=== PATIENT | male | born 1995 | race Caucasian/White ===

== ENCOUNTER 2018-06-06 20:03 | Emergency (ER) | payer OTHER ==
[~2018-06-06] VITALS: Ht 188 cm; Wt 76.2 kg
[2018-06-06 20:05] VITALS: BP_SYST 160
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
--- NOTE | 2018-06-06 20:38 | NUR ---
Patient to ER bed 07 for evaluation. Side rails up.
--- NOTE | 2018-06-06 20:41 | NUR ---
ER Dr. Fisher at bedside examining patient.
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
--- NOTE | 2018-06-06 21:00 | NUR ---
Pt taken to radiology via gurney in stable condition
[2018-06-06] MEDS ORDERED: BACITRACIN 1 GM OINT TP ONE (22:15)
--- NOTE | 2018-06-06 22:32 | NUR ---
Patient given written and verbal discharge instructions and verbalizes understanding. ER MD Fisher discussed with patient the results and treatment provided. Patient in stable condition. ID arm band removed. IV catheter removed intact and dressing applied, no active bleeding. Rx of Motrin, Soma given. Patient educated on pain management and to follow up with PMD. Pain Scale 0. Opportunity for questions provided and answered. Medication side effect fact sheet provided.
[2018-06-06 22:33] VITALS: BP_SYST 139
== END 2018-06-06 22:32 | disposition home or self-care (01) ==
LOC: SED 20:03
DX: S61.011A Laceration without foreign body of right thumb without damage to nail, initial encounter (principal); S16.1XXA Strain of muscle, fascia and tendon at neck level, initial encounter; R07.89 Other chest pain; R03.0 Elevated blood-pressure reading, without diagnosis of hypertension; V43.52XA Car driver injured in collision with other type car in traffic accident, initial encounter; Y93.89 Activity, other specified; Y92.410 Unspecified street and highway as the place of occurrence of the external cause; Y99.8 Other external cause status
CPT/HCPCS: 70460-TC; 71045; 72125-TC; 93005; 99284